=== PATIENT | male | born 1950 | race African-American/Black ===

== ENCOUNTER 2023-06-25 08:40 | Day surgery (SDC) | payer OTHER, SELFPAY ==
--- NOTE | 2023-06-24 17:03 | W.PM.DSUDISC ---
Date of service: 06/25/23 Time of Service: 11:42 Discharge Plan Disposition Patient Disposition: Home Condition: Good Discharge Details Reason For Visit: screening colonoscopy Attending Provider: Parveen Lugo Primary Care Provider: Andrés Hall Home Meds and New Rx's Prescriptions: Continued atorvastatin 40 mg tablet 40 mg PO DAILY amlodipine 5 mg tablet 5 mg PO DAILY hydrochlorothiazide 12.5 mg capsule 12.5 mg PO DAILY telmisartan 80 mg tablet 80 mg PO DAILY metoprolol succinate 25 mg tablet extended release 24 hr 25 mg PO DAILY aspirin 81 mg capsule 81 mg PO DAILY Discontinued polyethylene glycol 3350 17 gram/dose powder 238 g PO ONCE Qty: 238 0RF Rx Instructions: take per colonoscopy instructions bisacodyl [Dulcolax (bisacodyl)] 5 mg tablet,delayed release (DR/EC) 5 mg PO ONCE Qty: 4 0RF Rx Instructions: take per colonoscopy instructions Discharge Instructions Instructions: Colorectal Polyps (GEN) Additional Instructions: Chin, we were able to complete your colonoscopy today without any difficulty. Your prep was excellent. I did find a total of 4 polyps. I removed these all completely. I will send them off for pathologic analysis. Once I have the results of that testing I will be in touch with regards to your next colonoscopy. 1. If tolerated, consume a soft, low fiber diet for 1-2 days. 2. Do not drive, drink alcohol, operate machinery, make critical decisions, or do activities that require coordination or balance for 24 hours. 3. Because air was put into your colon during the procedure, expelling air from your rectum (passing gas or farting) is normal. 4. You may not have a bowel movement for 1-3 days because of the colonoscopy prep. This is normal. 5. Go directly to the emergency room if you notice any of the following: Develop chills (warm to touch), or if you have a thermometer and your temperature is above 101 Difficulty breathing or difficultly swallowing Persistent vomiting Severe abdominal pain, other than gas cramps Severe chest pain Black, tarry stools Any bleeding ? exceeding one tablespoon 6. Call your physician if the site where your intravenous was started becomes red, swollen, painful, and warm to touch. 7. Your physician has reviewed your pre-procedure medications. Please continue to take those medications as previously ordered. You will be given specific information/education regarding any changes to your medications before leaving. Activity:: Activity as Tolerated Diet:: As Tolerated Discharge Orders Discharge Orders: Discharge Order (Routine); Ordered 06/24/23 Ordered By: Parveen Lugo DS: Diagnosis Discharge Diagnosis (1) Screen for colon cancer: Status: Acute Asessment and Plan: Follow-up on polypectomy results
--- NOTE | 2023-06-24 17:04 | COLE_ITS ---
Date of service: 06/25/23 Time of Service: 11:44 Colonoscopy Report Date of procedure: 06/25/23 Pre-op diagnosis general: Screening colonoscopy Post-op diagnosis procedure note: other (Colon polyps) Procedure: Colonoscopy with polypectomy Surgeon: Parveen Lugo Anesthesia Type: General:No Airway Estimated blood loss (mL): 10 Pathology: other (3 polyps from 70 cm, 1 cecal polyp) Complications: None Disposition: same day Indications: Chin is a 73-year-old male who needs his next screening colonoscopy Prep: Miralax/Dulcolax Procedure Start Time: 11:08 Procedure End Time: 11:29 Retraction Time: 16 Findings: Cluster of 3 polyps at 70 cm from the anus ranging in size from 0.25 to 0.5 cm. One 0.75 cm polyp in the cecum Procedure Description: After the induction of monitored anesthetic care, and with the patient in left lateral decubitus position, I began by performing an external anorectal exam.? Perineum and skin were normal, as was the anal verge.? There was no not evidence of external hemorrhoids.? Next, I performed a digital rectal exam.? I did appreciate any abnormal findings.? Next, I advanced a colonoscope into the rectal vault.? I performed retroflexion.? There are internal hemorrhoids.? Using insufflation, I then advanced the colonoscope beyond the rectal folds and into the sigmoid colon before advancing towards the cecum.? The scope was noted to be in the cecum by identification of the ileocecal valve and appendiceal orifice.? Within the cecum was a 0.75 cm sessile polyp. I removed it with cold snare polypectomy. There was minimal bleeding. I then began withdrawing the colonoscope using repeated irrigation as necessary for full evaluation of the colonic mucosa. Around 70 cm from the anal verge were 3 polyps. The size of these polyps were 0.25 cm, 0.25 cm, and 0.5 cm. All of these were sessile, and I removed these all with cold snare polypectomy. There is minimal bleeding at the sites. They were all sent as 1 specimen given proximity to one another. ?Once the scope was withdrawn to the level of the rectum, great care was taken to examine portions of the rectal folds.? Finally, the scope was withdrawn and the patient was brought to the same-day surgery recovery unit as the anesthetic wore off. ?The findings and instructions were shared with the patient prior to discharge. [place] Bowel Prep [place] Bowel Prep Right Colon: 3 Left Colon: 3 Transverse Colon: 3 Total Score: 9
[2023-06-25 09:38] VITALS: BP 140/84; PULSE 62; RESP 16; TEMP 36.2; O2SAT 99
[2023-06-25] MEDS: Lactated Ringers 1,000 ML 80 ML IV (09:55)
--- NOTE | 2023-06-25 10:50 | W.ANESPRE ---
General Info Date of Service Date Performed: 06/25/23 Height: 5 ft 8.5 in Weight: 101.2 kg Body Mass Index (BMI): 33.4 Surgical Procedure: Operation Date: 06/25/23 10:50 Proposed Procedure Side Surgeon p Colonoscopy Parveen Lugo MD Meds Allergies and Home Medications Allergies Allergy/AdvReac Type Severity Reaction Status Date / Time No Known Drug Allergies Allergy Unknown Verified 06/25/23 09:30 Home Medication Medication Instructions Recorded amlodipine 5 mg tablet 5 mg PO DAILY 04/08/23 aspirin 81 mg capsule 81 mg PO DAILY 04/08/23 atorvastatin 40 mg tablet 40 mg PO DAILY 04/08/23 hydrochlorothiazide 12.5 mg capsule 12.5 mg PO DAILY 04/08/23 metoprolol succinate 25 mg 25 mg PO DAILY 04/08/23 tablet,extended release 24 hr telmisartan 80 mg tablet 80 mg PO DAILY 04/08/23 Current Visit Medications: Current Medications Generic Name Dose Route Start Last Admin Trade Name Freq PRN Reason Stop Dose Admin Hyoscyamine Sulfate 0.125 mg 06/24/23 17:05 Hyoscyamine 0.125 Mg Sl/Oral/Chew SL 07/24/23 17:04 DIRECTED PRN Ringer's Solution 1,000 mls @ 80 mls/hr 06/25/23 06:00 IV 06/25/23 23:59 [facility] IV Miscellaneous Supplies 1 each 06/25/23 06:00 Iv Access IV 06/25/23 23:59 DIRECTED MOON Ondansetron HCl 4 mg 06/24/23 17:05 Ondansetron 4 Mg/2 Ml Vial IVP 07/24/23 17:04 Q4H PRN PRN Nausea / Vomiting Sodium Chloride 0 ml 06/25/23 06:00 Normal Saline Flush 10 Ml Syr IV 06/25/23 23:59 PRN PRN Sodium Chloride 0 ml 06/25/23 06:00 Normal Saline 10 Ml Vial IJ 06/25/23 23:59 DIRECTED PRN Sterile Water 0 ml 06/25/23 06:00 Water,Injection,Sterile 10 Ml Vial IJ 06/25/23 23:59 DIRECTED PRN PFSH Active Problems Active Problems: Problem Status Onset Code Screen for colon cancer Z12.11 Medical History Medical History Hearing loss Knee pain Obesity Hyperlipidemia Wrist pain Low back pain Elbow pain Capillary nevus of skin Impaired fasting glucose Essential hypertension Pain in left shoulder Surgical History Surgical History History of prosthetic unicompartmental arthroplasty of knee bilateral Tobacco Smoking/Tobacco Use Status: Never Alcohol Alcohol Intake: current Alcohol intake frequency: a few times a week Substance Use Substance use: Never Substance use type: does not use Vital Signs and Lab Results Vital Signs Most Recent Vital Signs in EMR: Most Recent Vital Signs Temp Pulse Resp BP Pulse Ox 36.2 C L 62 16 140/84 99 06/25/23 09:38 06/25/23 09:38 06/25/23 09:38 06/25/23 09:38 06/25/23 09:38 Lab Results Blood Type / Crossmatch: No Data to Display Complete Blood Count: No Data to Display Complete Metabolic Panel: No Data to Display Liver Function Panel: No Data to Display Coagulation Panel: No Data to Display Cardiac Panel: No Data to Display Arterial Blood Gas: No Data to Display Venous Blood Gas: No Data to Display Pancreas Panel: No Data to Display Thyroid Panel: No Data to Display Infectious Disease: No Data to Display Blood Cultures: No Data to Display Toxicology Panel: No Data to Display Anesthesia Assessment and Plan Anesthesia History Personal History: No History of Anesthesia Complications Family History: No Family History of Anesthesia Complications Exercise Tolerance Exercise Tolerance: Metabolic Equivalents>4 Pertinent Negatives Pertinent Negatives: No Symptoms of GERD, No Major Cardiovascular Symptoms or Complaints and No Major Pulmonary Symptoms or Complaints Cardiac & Pulmonary Exam Cardiac Exam: Normal S1/S2 Heart Sounds Pulmonary Exam: Clear Bilateral Breath Sounds Implantable Cardiac Device Does patient have a Pacemaker or an ICD?: No Airway Exam Known Difficult Airway: No Mallampati Class: 1 Mouth Opening: Normal (> 3cm) Thyromental Distance: Greater than 3 cm Neck Range of Motion: Full ROM Neck Circumference: Normal Teeth Condition: Normal Dentition and Removable Dentures/Plates Upper ASA Classification ASA Score: ASA 2 Emergency Case?: No NPO Status NPO Status: NPO Clears >2 hours, Solids >8 hours Anesthesia Plan Resuscitation Status: Full Code Anesthesia Technique: General Anesthesia Airway Planned: Natural Airway Monitors Used: Standard Monitors
[2023-06-25 10:52] VITALS: BMI 33.4
--- NOTE | 2023-06-25 11:15 | BOWEL_PTH ---
PATIENT: Chin Lee LOC: [facility] U#:[id number] AGE/SX: 73/M ROOM: RE06/25/[address]: Parveen Lugo MD : [id number] BED: DIS: 06/25/2023 SPEC #: [id number] RECD: 06/25/23 12:48 STATUS: MARIA INES REQ #: [id number] CHRISTEL: 06/25/23 11:[address]: Parveen Lugo DEPT: Surgical Specimen RECD BY: Lindsay Del Valle ENTERED: 06/25/23 12:49 SP TYPE: Bowel OTHR DR: Andrés Hall Tissues: 1 - BIOPSY BOWEL 2 - BIOPSY BOWEL Procedures: GROSS AND MICRO LEVEL 4 Comments: [id number]
[2023-06-25 11:38] VITALS: BP 111/75; PULSE 74; RESP 16; TEMP 36; O2SAT 96
[2023-06-25 12:10] VITALS: BP 115/69; PULSE 66; RESP 16; TEMP 36.1; O2SAT 97
--- NOTE | 2023-06-25 15:41 | W.ANESPOSTOP ---
Postoperative Evaluation Date, Time and Location Date Performed: 06/25/23 Time Performed: 11:42 Patient Location: Day Surgery Unit Vital Signs Most Recent Imported Vital Signs: Most Recent Vital Signs Temp Pulse Resp BP Pulse Ox 36.1 C L 66 16 115/69 97 06/25/23 12:10 06/25/23 12:10 06/25/23 12:10 06/25/23 12:10 06/25/23 12:10 Pain Score Most Recent Pain Score: Most Recent Pain Score Pain Level 0 06/25/23 12:10 Assessment Mental Status: Awake (Alert & Oriented to Patient Baseline) Airway and Respiratory Function: Patent airway with normal (patient baseline) respiratory exam Cardiovascular Function: Hemodynamically Stable Hydration Status: Adequately Hydrated Nausea & Vomiting: No Nausea or Vomiting Pain: Pt. Denies Any Pain Peripheral Nerve Block: Patient did not receive a nerve block
== END 2023-06-25 12:25 | disposition home or self-care (01) ==
PROVIDERS: PCP Internal Medicine; Visit Provider Surgery
PROC: 0DJD8ZZ Inspection of Lower Intestinal Tract, Via Natural or Artificial Opening Endoscopic (ICD-10-PCS; CPT 45378; principal; 2023-06-25 10:45)
DX: Z12.11 Encounter for screening for malignant neoplasm of colon (principal); D12.0 Benign neoplasm of cecum; D12.4 Benign neoplasm of descending colon
CPT/HCPCS: 45385; 88305